=== PATIENT | male | born 1965 | race African-American/Black ===

== ENCOUNTER 2020-01-23 09:53 | Emergency (ER) | payer OTHER, SELFPAY ==
[2020-01-23] VITALS (14 sets, daily range): BP systolic 126–144; BP diastolic 82–93; PULSE 71–93; RESP 10–18; TEMP 36.8; O2SAT 97–100
--- NOTE | ~2020-01-23 | XR_ITS ---
XR lumbar spine 2-3V DATE: 01/23/2020 11:23 INDICATION: Low back pain TECHNIQUE: AP, lateral views COMPARISON: None FINDINGS: Normal alignment of the lumbar spine. No fracture or bone destruction. The lumbar and inclu ded lower thoracic pedicles are intact. No spondylolisthesis. Lumbar and lumbosacral interspaces appe ar preserved. Mild degenerative spurring of the lumbar spine. The sacral iliac joints are normal. IMPRESSION: Mild degenerative spurring Reviewed, dictated and finalized at location A. IMPRESSION: Mild degenerative spurring
--- NOTE | 2020-01-23 11:06 | ED.GENADULT ---
HPI - General Adult General Chief complaint: Unspecified Stated complaint: body aches/chills Time Seen by Provider: 01/23/20 10:22 Source: patient Mode of arrival: ambulatory Limitations: no limitations History of Present Illness HPI narrative: This patient is a 54 year old male who presents with complaint of neck pain and back pain. Patient has history of back in [place] in the past. He states he has had back and neck pain x 3 days when he lays down. He states he is unable to sleep due to his pain, although he has not tried to take any medication for his pain. Patient was seen by his primary care physician yesterday , and he was prescribed antibiotics for a sinus infection. He also states he was given a script to get an xray but he came to ER. He denies arm or leg weakness. He states he has tingling in his feet. Related Data Home Medications Medication Instructions Recorded Confirmed Augmentin 875 mg PO BID 01/23/20 01/23/20 hydrochlorothiazide 12.5 mg PO DAILY 01/23/20 01/23/20 metoprolol succinate 12.5 mg PO DAILY 01/23/20 01/23/20 Allergies Allergy/AdvReac Type Severity Reaction Status Date / Time No Known Allergies Allergy Verified 01/23/20 10:00 Review of Systems Review of Systems: All systems reviewed & are unremarkable except as noted in HPI and below Constitutional: Constitutional: Denies chills, Denies fever(s) and Denies weakness ENT: Reports nasal congestion, Reports sinus pressure and Denies sore throat Gastrointestinal: Gastrointestinal: Denies abdominal pain and Denies nausea Musculoskeletal: Musculoskeletal: Reports back pain Neurologic: Denies dizziness, Denies focal weakness and Denies weakness PMFSH Past Medical History Medical History (Updated 01/23/20 @ 13:13 by Kristi Nunes MD) Hypertension Social History Social History (Updated 01/23/20 @ 11:09 by Kristi Nunes MD) Smoking status: Never smoker Gender identity (if verbalized by the patient): Male Comments denies surgical history Exam Narrative: Exam Narrative: GENERAL: Well-appearing, well-nourished, and in no acute distress. HEAD: Normocephalic, atraumatic EYES: PERRLA and EOMI, conjunctiva clear without discharge EARS: TM's clear bilaterally without erythema or dullness NOSE: Nares clear, no rhinorrhea or epistaxis THROAT:Mucous membranes moist, Oropharynx normal without erythema, exudate, peritonsillar swelling or fluctuance NECK: Supple, without lymphadenopathy or mass RESPIRATORY: No respiratory distress, Airway patent, Respirations non-labored, Clear to auscultation without rales, rhonchi or wheeze HEART: Regular rate and rhythm. No murmur heard. Normal peripheral pulses. ABDOMEN: Soft, nontender, nondistended, normal active bowel sounds. No masses. No rebound or guarding, No organomegaly. EXTREMITIES: No edema, normal strength with full range of motion. SKIN: Warm, dry, normal color without rash NEURO: Alert and oriented x3. CN 2-12 grossly intact. No focal deficits. PSYCH: Normal mood and affect. Course Vital Signs Vital signs: Vital Signs Temperature 98.3 F 01/23/20 09:55 Pulse Rate 92 01/23/20 09:55 Respiratory Rate 18 01/23/20 09:55 Blood Pressure 140/93 H 01/23/20 09:55 Pulse Oximetry 98 01/23/20 09:55 Temperature 98.3 F 01/23/20 09:55 Pulse Rate 79 01/23/20 11:21 Respiratory Rate 15 01/23/20 11:21 Blood Pressure 128/82 01/23/20 11:01 Pulse Oximetry 98 01/23/20 11:02 Medical Decision Making Vital Signs Vital Signs: Vital Signs Temperature 98.3 F 01/23/20 09:55 Pulse Rate 92 01/23/20 09:55 Respiratory Rate 18 01/23/20 09:55 Blood Pressure 140/93 H 01/23/20 09:55 Pulse Oximetry 98 01/23/20 09:55 Temperature 98.3 F 01/23/20 09:55 Pulse Rate 79 01/23/20 11:21 Respiratory Rate 15 01/23/20 11:21 Blood Pressure 128/82 01/23/20 11:01 Pulse Oximetry 98 01/23/20 11:02 Lab Data Result diagrams:
[2020-01-23 11:20] LABS: Basophils Percent Auto 0.3 % (0.2-1.2); Eosinophils Absolute Auto 0.2 K/mm3 (0-0.3); Hematocrit 43.7 % (42.0-52.0); Hemoglobin 15.1 g/dL (14.0-18.0); Immature Granulocyte Absolute 0.02 K/mm3 (0.00-0.031); Immature Granulocyte Percent A 0.2 % (0-0.5); Lymphocytes Percent Auto 22.3 % (18.3-44.2); Mean Corpuscular HGB Conc 34.6 g/dl (32-36); Mean Corpuscular Hemoglobin 30.6 pg (26-34); Mean Corpuscular Volume 88.5 fl (80-100); Mean Platelet Volume 8.9 fl (7.4-10.4); Monocytes Absolute Auto 0.6 K/mm3 (0.1-0.6); Monocytes Percent Auto 7.1 % (2.6-8.5); Neutrophils Absolute Auto 6.1 K/mm3 (1.3-6.7); Neutrophils Percent Auto 68.1 % (45.5-73.1); Platelet Count Result 270 k/mm3 (150-375); Red Blood Count 4.94 M/mm3 (4.6-6.20); Red Cell Distribution Width 12.2 % (11.5-14.5)
[2020-01-23 13:05] LABS: Alanine Aminotransferase 55 U/L (4-50); Albumin Level 4.7 g/dL (3.5-5.1); Alkaline Phosphatase 90 U/L (38-126); Aspartate Amino Transferase 41 U/L (17-59); Bilirubin,Total 0.5 mg/dL (0.2-1.3); Blood Urea Nitrogen 13 mg/dL (9-20); CRP < 0.5 mg/dL (<1.0); Calcium 9.8 mg/dL (8.4-10.2); Carbon Dioxide 29 mmol/L (22-30); Chloride 102 mmol/L (98-107); Estimated CRCL calculation 68 ml/min; Estimated Glomerular Filt Rate > 60; Glucose 92 mg/dL (75-110); Potassium 3.5 mmol/L (3.4-5.0); Sodium 139 mmol/L (137-145)
== END 2020-01-23 13:26 | disposition home or self-care (01) ==
PROVIDERS: Emergency Provider General Practice; PCP Family Medicine
DX: M54.5 Low back pain (principal); I10 Essential (primary) hypertension
CPT/HCPCS: 36415; 72100; 80053; 85025; 86140; 99283

== ENCOUNTER → 2020-05-20 11:39 | Outpatient (CLI) | payer OTHER, SELFPAY ==
--- NOTE | ~2020-05-20 | XR_ITS ---
EXAMINATION: XR cervical spine 4-5V DATE: 05/20/2020 12:03 INDICATION: Neck pain. Arm and leg pain. TECHNIQUE: 4 views of cervical spine were obtained. COMPARISON: None. FINDINGS: There is 3 degrees levocurvature of cervicothoracic spine. Vertebral body heights and inter vertebral disc heights are normal. The facet joints are unremarkable. No central canal stenosis or pr evertebral soft tissue swelling. IMPRESSION: 1. No etiology for the patient's symptoms. Reviewed, dictated and finalized at location A.
--- NOTE | ~2020-05-20 | XR_ITS ---
EXAMINATION: XR soft tissue neck DATE: 05/20/2020 12:03 INDICATION: Sore throat. TECHNIQUE: 2 views of the neck soft tissues were obtained. COMPARISON: None. FINDINGS: The adenoids, palatine tonsils, prevertebral soft tissues, epiglottis, and airway are angela l. IMPRESSION: 1. Normal neck soft tissues. Reviewed, dictated and finalized at location A.
== END ==
PROVIDERS: PCP Emergency Medicine; Visit Provider Emergency Medicine
DX: M54.2 Cervicalgia (principal); R20.2 Paresthesia of skin; J02.9 Acute pharyngitis, unspecified
CPT/HCPCS: 70360; 72050

== ENCOUNTER 2020-08-24 21:03 | Emergency (ER) | payer OTHER, SELFPAY ==
[2020-08-24 21:06] VITALS: BP 148/89; PULSE 84; RESP 20; TEMP 36.4; O2SAT 99
--- NOTE | 2020-08-24 21:21 | ECG_ITS ---
Measurements Intervals [place] Rate: 79 P: 61 [place]: 157 QRS: -12 QRSD: 94 T: 38 QT: 342 QTc: 393 Interpretive Statements SINUS RHYTHM NORMAL ECG Electronically Signed On 08-25-2020 7:46:55 [employer]CIAL [employer]ENT by Jean Paul Cartwright D.O.
[2020-08-24 21:26] VITALS: BP 134/87; PULSE 74
[2020-08-24 21:28] VITALS: BP 133/94; PULSE 76
[2020-08-24 21:30] VITALS: BP 144/87; PULSE 82
[2020-08-24 21:44] LABS: Basophils Percent Auto 0.4 % (0.2-1.2); Eosinophils Absolute Auto 0.3 K/mm3 (0-0.3); Eosinophils Percent Auto 3.4 % (0-4.4); Hematocrit 43.3 % (42.0-52.0); Hemoglobin 14.9 g/dL (14.0-18.0); Immature Granulocyte Absolute 0.02 K/mm3 (0.00-0.031); Immature Granulocyte Percent A 0.3 % (0-0.5); Lymphocytes Absolute Auto 2.88 K/mm3 (0.9-3.2); Lymphocytes Percent Auto 36.3 % (18.3-44.2); Mean Corpuscular HGB Conc 34.4 g/dl (32-36); Mean Corpuscular Hemoglobin 30.8 pg (26-34); Mean Corpuscular Volume 89.5 fl (80-100); Mean Platelet Volume 9.1 fl (7.4-10.4); Monocytes Absolute Auto 0.6 K/mm3 (0.1-0.6); Monocytes Percent Auto 7.4 % (2.6-8.5); Neutrophils Absolute Auto 4.2 K/mm3 (1.3-6.7); Neutrophils Percent Auto 52.2 % (45.5-73.1); Platelet Count Result 283 k/mm3 (150-375); Red Blood Count 4.84 M/mm3 (4.6-6.20); Red Cell Distribution Width 12.1 % (11.5-14.5); White Blood Count 7.9 K/mm3 (4.5-10.0)
[2020-08-24] MEDS: SODIUM CHLORIDE 0.9% IV 1,000 ML 999 ML IV CONT (21:51)
--- NOTE | 2020-08-24 21:52 | ED.GENADULT ---
HPI - General Adult General Chief complaint: Dizziness Stated complaint: dizziness, SOB Time Seen by Provider: 08/24/20 21:38 History of Present Illness HPI narrative: Patient is a 55-year-old gentleman who presents the emergency department with chief complaint of near syncope. Patient reports he was at work at [email or web address] working on the [place] [employer] says he was nearby the boilers and started feeling lightheaded felt as though he was going to pass out and also felt a little short of breath at that time. Patient states that the symptoms have subsequently resolved states that he started to feel better at this time. Patient does report that for some time he has had some generalized muscle aches reports that he has prior history of hypertension and takes medications for blood pressure. The patient denies chest pain denies fever denies chills denies cough. Related Data Home Medications Medication Instructions Recorded Confirmed Augmentin 875 mg PO BID 01/23/20 01/23/20 hydrochlorothiazide 12.5 mg PO DAILY 01/23/20 01/23/20 metoprolol succinate 12.5 mg PO DAILY 01/23/20 01/23/20 Allergies Allergy/AdvReac Type Severity Reaction Status Date / Time No Known Allergies Allergy Verified 08/24/20 21:08 Review of Systems Review of Systems: Narrative: A 10 system review of systems was completed on the patient and is negative except for what is stated in the HPI. Nursing and ancillary documentation was reviewed. [facility] Past Medical History Medical History Hypertension Social History Social History Smoking status: Never smoker Gender identity (if verbalized by the patient): Male Sexual Orientation (if Verbalized by the Patient): Straight or Heterosexual Exam Narrative: Exam Narrative: GENERAL: Well-appearing, well-nourished, and in no acute distress. HEAD: Normocephalic, atraumatic. EYES: PERRLA and EOMI. ENT: Nares clear, no rhinorrhea or epistaxis. Mucous membranes moist. NECK: Supple. CHEST: Clear to auscultation. No respiratory distress. HEART: Regular rate and rhythm. No murmur heard. Normal peripheral pulses. ABDOMEN: Soft, nontender, nondistended, normal active bowel sounds. EXTREMITIES: Normal range of motion. No edema. SKIN: Warm, dry, no rash. NEURO: No focal deficits. Alert and oriented x3. PSYCH: Normal mood and affect. Course Vital Signs Vital signs: Vital Signs Temperature 36.4 C 08/24/20 21:06 Pulse Rate 84 08/24/20 21:06 Respiratory Rate 20 08/24/20 21:06 Blood Pressure 148/89 H 08/24/20 21:06 Pulse Oximetry 99 08/24/20 21:06 Temperature 36.4 C 08/24/20 21:06 Pulse Rate 82 08/24/20 21:30 Respiratory Rate 20 08/24/20 21:06 Blood Pressure 144/87 H 08/24/20 21:30 Pulse Oximetry 99 08/24/20 21:06 Medical Decision Making Vital Signs Vital Signs: Vital Signs Temperature 36.4 C 08/24/20 21:06 Pulse Rate 84 08/24/20 21:06 Respiratory Rate 20 08/24/20 21:06 Blood Pressure 148/89 H 08/24/20 21:06 Pulse Oximetry 99 08/24/20 21:06 Temperature 36.4 C 08/24/20 21:06 Pulse Rate 82 08/24/20 21:30 Respiratory Rate 20 08/24/20 21:06 Blood Pressure 144/87 H 08/24/20 21:30 Pulse Oximetry 99 08/24/20 21:06 Lab Data Result diagrams: 08/24/20 21:36 08/24/20 21:36 Labs: Lab Results 08/24/20 08/24/20 08/24/20 Range/Units 21:36 21:36 21:36 WBC 7.9 (4.5-10.0) K/mm3 RBC 4.84 (4.6-6.20) M/mm3 Hgb 14.9 (14.0-18.0) g/dL Hct 43.3 (42.0-52.0) % MCV 89.5 (80-100) fl MCH 30.8 (26-34) pg MCHC 34.4 (32-36) g/dl RDW 12.1 (11.5-14.5) % Plt Count 283 (150-375) k/mm3 MPV 9.1 (7.4-10.4) fl Immature Gran % (Auto) 0.3 (0-0.5) % Neut % (Auto) 52.2 (45.5-73.1) % Lymph % (Auto) 36.3 (18.3-44.2) % [place] % (Auto) 7.4 (2.6-8.5
[2020-08-24 21:57] LABS: Anion Gap 9 mmol/L (8-16); Blood Urea Nitrogen 18 mg/dL (9-20); Calcium 9.4 mg/dL (8.4-10.2); Carbon Dioxide 29 mmol/L (22-30); Chloride 99 mmol/L (98-107); Estimated CRCL calculation 55 ml/min; Estimated Glomerular Filt Rate > 60; Glucose 92 mg/dL (75-110); Potassium 3.6 mmol/L (3.4-5.0); Sodium 137 mmol/L (137-145)
[2020-08-24 22:08] LABS: Troponin I < 0.012 ng/mL (0.000-0.034)
[2020-08-24 22:25] LABS: Creatine Kinase 355 U/L (55-170)
[2020-08-24 22:44] LABS: Add Urine Microscopic? NO; Appearance Urine Clear (Clear); Bilirubin Urine Negative (Negative); Blood Urine Negative (Negative); Color Urine Colorless (Yellow); Glucose Urine UA Negative (Negative); Ketones Urine Negative (Negative); Leukocyte Esterase Ur Negative LEU/UL (Negative); Nitrate Urine Negative (Negative); Protein Urine Negative (Negative); Urobilinogen Urine Negative mg/dL (<2.0)
[2020-08-24 23:07] VITALS: BP 134/80; PULSE 75; RESP 18; O2SAT 100
[2020-08-25 00:16] VITALS: BP 132/69; PULSE 74; RESP 20; O2SAT 97
== END 2020-08-25 00:17 | disposition home or self-care (01) ==
PROVIDERS: Emergency Provider Emergency Medicine; PCP Emergency Medicine
DX: R55 Syncope and collapse (principal); I10 Essential (primary) hypertension
CPT/HCPCS: 36415; 80048; 81003; 82550; 84484; 85025; 93005; 96360; 99284; J7030

== ENCOUNTER 2021-08-24 03:22 | Emergency (ER) | payer OTHER, SELFPAY ==
[2021-08-24 03:25] VITALS: BP 144/87; PULSE 80; RESP 20; TEMP 36.8; O2SAT 100
[2021-08-24 05:24] VITALS: BP 159/99; PULSE 68; RESP 19; O2SAT 98
--- NOTE | 2021-08-24 06:02 | ECG_ITS ---
Measurements Intervals [place] Rate: 65 P: 56 [place]: 155 QRS: -12 QRSD: 83 T: 46 QT: 371 QTc: 386 Interpretive Statements SINUS RHYTHM NORMAL ECG Electronically Signed On 08-24-2021 6:11:46 [employer] by Jean Paul Cartwright D.O.
[2021-08-24 06:20] LABS: Basophils Percent Auto 0.2 % (0.2-1.2); Eosinophils Absolute Auto 0.1 K/mm3 (0-0.3); Eosinophils Percent Auto 0.6 % (0-4.4); Hemoglobin 15.3 g/dL (14.0-18.0); Immature Granulocyte Absolute 0.04 K/mm3 (0.00-0.031); Immature Granulocyte Percent A 0.3 % (0-0.5); Lymphocytes Absolute Auto 2.36 K/mm3 (0.9-3.2); Mean Corpuscular Hemoglobin 30.8 pg (26-34); Mean Corpuscular Volume 90.5 fl (80-100); Mean Platelet Volume 8.7 fl (7.4-10.4); Monocytes Absolute Auto 0.8 K/mm3 (0.1-0.6); Monocytes Percent Auto 6.6 % (2.6-8.5); Neutrophils Absolute Auto 9.1 K/mm3 (1.3-6.7); Neutrophils Percent Auto 73.3 % (45.5-73.1); Platelet Count Result 297 k/mm3 (150-375); Red Blood Count 4.97 M/mm3 (4.6-6.20); Red Cell Distribution Width 12.3 % (11.5-14.5); White Blood Count 12.4 K/mm3 (4.5-10.0)
[2021-08-24 06:32] LABS: Alanine Aminotransferase 23 U/L (4-50); Albumin Level 4.4 g/dL (3.5-5.1); Alkaline Phosphatase 81 U/L (38-126); Anion Gap 8 mmol/L (8-16); Aspartate Amino Transferase 23 U/L (17-59); Bilirubin,Total 0.6 mg/dL (0.2-1.3); Blood Urea Nitrogen 26 mg/dL (9-20); Calcium 9.4 mg/dL (8.4-10.2); Carbon Dioxide 27 mmol/L (22-30); Chloride 100 mmol/L (98-107); Estimated CRCL calculation 58 ml/min; Estimated Glomerular Filt Rate > 60; Glucose 101 mg/dL (65-110); Potassium 3.8 mmol/L (3.4-5.0); Sodium 135 mmol/L (137-145)
--- NOTE | 2021-08-24 06:33 | ED.EXTPRO ---
HPI - Extremity Problem General Chief complaint: Extremity Problem,Nontraumatic Stated complaint: bilateral leg cramping Time Seen by Provider: 08/24/21 06:17 Source: patient Mode of arrival: ambulatory Limitations: no limitations History of Present Illness HPI Narrative: Patient is a 56-year-old male complaining of bilateral lower extremity cramping accompanied by waking up in sweat for the past 3 days. Patient currently denies any cramping of his lower extremities. Patient denies any lower extremity pain. Patient denies any chest pain, shortness of breath, abdominal pain, nausea, vomiting, fever or chills. Related Data Home Medications Medication Instructions Recorded Confirmed Augmentin 875 mg PO BID 01/23/20 01/23/20 hydrochlorothiazide 12.5 mg PO DAILY 01/23/20 01/23/20 metoprolol succinate 12.5 mg PO DAILY 01/23/20 01/23/20 Allergies Allergy/AdvReac Type Severity Reaction Status Date / Time No Known Allergies Allergy Verified 08/24/21 05:26 Review of Systems Review of Systems: All systems reviewed & are unremarkable except as noted in HPI and below Constitutional: Constitutional: Denies body ache(s), Denies chills, Denies excessive sweating, Denies fatigue, Denies fever(s), Denies headache(s), Denies lethargy, Denies malaise, Denies weakness and Denies weight loss Eyes: Eyes: Denies blurry vision, Denies change in vision and Denies loss of vision ENT: Denies dizziness, Denies ear discharge, Denies headache(s), Denies lip swelling, Denies epistaxis, Denies nasal congestion, Denies neck pain, Denies throat swelling and Denies tongue swelling Cardiovascular: Cardiovascular: Denies chest pain, Denies chest pain at rest, Denies chest pain with activity, Denies diaphoresis, Denies rapid heart rate, Denies edema, Denies irregular heart rhythm, Denies lightheadedness, Denies palpitations, Denies dyspnea and Denies dyspnea on exertion Respiratory: Respiratory: Denies chest congestion, Denies cough, Denies hemoptysis, Denies dyspnea and Denies dyspnea on exertion Gastrointestinal: Gastrointestinal: Denies abdominal pain, Denies melena, Denies hematochezia, Denies diarrhea, Denies nausea, Denies vomiting and Denies hematemesis Musculoskeletal: Musculoskeletal: Denies abnormal gait, Denies deformity, Denies joint swelling, Denies limited range of motion, Denies neck pain and Denies numbness Neurologic: Denies Abnormal speech present, Denies abnormal gait, Denies confusion, Denies dizziness, Denies headache(s), Denies focal weakness, Denies loss of vision, Denies numbness, Denies Other visual disturbances, Denies Sensory deficit (Neuro) and Denies weakness Psychiatric: Psychiatric: Denies confusion, Denies depression, Denies auditory hallucinations, Denies homicidal ideation and Denies suicidal ideation Endocrine: Endocrine: Denies cold intolerance, Denies excessive sweating, Denies fatigue, Denies heat intolerance and Denies palpitations Hematologic/Lymphatic: Hematologic/Lymphatic: Denies easy bleeding and Denies easy bruising Allergic/Immunologic: Allergic/Immunologic: Denies lip swelling, Denies throat swelling and Denies tongue swelling PMFSH Past Medical History Medical History Hypertension Social History Social History Smoking status: Never smoker Gender identity (if verbalized by the patient): Male Sexual Orientation (if Verbalized by the Patient): Straight or Heterosexual Exam Const: General: cooperative, healthy appearing, comfortable, no acute distress, well developed, alert and awake; No confusion Orientation/consciousness: oriented to person, oriented to place, oriented to time, patient oriented x3 and No confusion Limitations: no limitations HENMT: Head: normal to inspection, normocephalic and atraumatic Ears: hearing grossly normal bilaterally, TM normal on the right and TM normal on the
[2021-08-24 06:37] VITALS: BP 148/95; PULSE 68; RESP 15; O2SAT 99
[2021-08-24 06:42] LABS: Troponin I < 0.012 ng/mL (0.000-0.034)
[2021-08-24 07:25] VITALS: BP 137/81; PULSE 69; RESP 18; O2SAT 100
== END 2021-08-24 07:26 | disposition home or self-care (01) ==
PROVIDERS: Emergency Provider Emergency Medicine; PCP Emergency Medicine
DX: R25.2 Cramp and spasm (principal); I10 Essential (primary) hypertension
CPT/HCPCS: 36415; 80053; 84484; 85025; 93005; 99283

== ENCOUNTER 2021-10-01 09:58 | Emergency (ER) | payer OTHER, SELFPAY ==
[2021-10-01 10:16] VITALS: BP 137/76; PULSE 87; RESP 14; TEMP 37.1; O2SAT 100
[2021-10-01 12:24] LABS: Add Urine Microscopic? NO; Appearance Urine Clear (Clear); Bilirubin Urine Negative (Negative); Blood Urine Negative (Negative); Color Urine Colorless (Yellow); Glucose Urine UA Negative (Negative); Ketones Urine Negative (Negative); Leukocyte Esterase Ur Negative LEU/UL (Negative); Nitrate Urine Negative (Negative); Protein Urine Negative (Negative); Urobilinogen Urine Negative mg/dL (<2.0)
[2021-10-01 12:31] LABS: Specific Grav Ur 1.003 (1.001-1.035)
--- NOTE | 2021-10-01 13:13 | ED.GENADULT ---
HPI - General Adult General Chief complaint: Extremity Problem,Nontraumatic Stated complaint: tingling in groin/legs Time Seen by Provider: 10/01/21 11:16 History of Present Illness HPI narrative: Patient is a 56-year-old male who presents ER with complaint of tingling around his urethra when he urinates as well as some sore throat. Reports the tingling is only when he urinates, he has no urethral discharge, he is not concerned about STI as he is not had sex in the last 10 years. He has no fevers or chills or sweats. No lower abdominal pain. He has no numbness or tingling of his testicles/penis/anus/perineum. No difficulty with defecation. Reports chronic back pain with a pinched nerve many years ago that has not currently being aggravated. Reports a sore throat came on today and prompted his visit. The tingling of the penis had been ongoing for 2 months. Sore throat is not related to sinus congestion, no productive cough. He has been seen by ENT in the past with nonspecific pharyngitis that may be related to reflux. Related Data Home Medications Medication Instructions Recorded Confirmed Augmentin 875 mg PO BID 01/23/20 01/23/20 hydrochlorothiazide 12.5 mg PO DAILY 01/23/20 01/23/20 metoprolol succinate 12.5 mg PO DAILY 01/23/20 01/23/20 Allergies Allergy/AdvReac Type Severity Reaction Status Date / Time No Known Allergies Allergy Verified 08/24/21 05:26 Review of Systems Constitutional: Constitutional: Denies chills, Denies fever(s) and Denies weakness ENT: Denies nasal congestion and Reports sore throat Respiratory: Respiratory: Denies cough, Denies dyspnea and Denies wheezing Gastrointestinal: Gastrointestinal: Denies abdominal pain, Denies constipation, Denies diarrhea and Denies nausea Genitourinary: Genitourinary: Denies hematuria, Denies oliguria, Reports dysuria, Denies penile discharge, Denies testicular pain, Denies urinary frequency and Denies urinary incontinence Musculoskeletal: Musculoskeletal: Denies back pain and Denies muscle cramps Neurologic: Denies headache(s), Denies focal weakness and Denies numbness [facility] Past Medical History Medical History (Updated 10/01/21 @ 14:01 by Saravanan Pitts MD) Hypertension Surgical History Surgical History (Updated 10/01/21 @ 14:01 by Saravanan Pitts MD) No pertinent past surgical history Social History Social History Smoking status: Never smoker Gender identity (if verbalized by the patient): Male Sexual Orientation (if Verbalized by the Patient): Straight or Heterosexual Exam Narrative: GENERAL: Well-appearing, well-nourished, and in no acute distress. HEAD: Normocephalic, atraumatic. ENT: Mucous membranes moist. Normal-appearing posterior oropharynx without tonsillar hypertrophy or uvular shift. NECK: Supple. CHEST: Clear to auscultation. No respiratory distress. HEART: Regular rate and rhythm. Normal peripheral pulses. ABDOMEN: Soft, nontender, nondistended. : Normal-appearing external genitalia. Sharp and soft touch intact throughout the groin/testicle/penis. No urethral discharge. No tenderness to the testicle/epididymis. Back: No midline tenderness of thoracic or lumbar spine. No reproducible paraspinal muscular tenderness. EXTREMITIES: Normal range of motion. No edema. SKIN: Warm, dry, no rash. NEURO: Alert and oriented x3. Ambulates with steady gait. Sensation intact in groin. Course Course Emergency Course: Unremarkable evaluation. Recommend follow-up with PCP. Vital Signs Vital signs: Vital Signs Temperature 98.8 F 10/01/21 10:16 Pulse Rate 87 10/01/21 10:16 Respiratory Rate 14 10/01/21 10:16 Blood Pressure 137/76 10/01/21 10:16 Pulse Oximetry 100 10/01/21 10:16 Temperature 98.8 F 10/01/21 10:16 Pulse Rate 87 10/01/21 10:16 Respiratory Rate 14 10/01/21 10:16 Blood Pressure 137/76 10/01/21 10:16 Pulse Oximetry 100
[2021-10-01 13:56] VITALS: BP 126/74; PULSE 86; RESP 18; O2SAT 100
== END 2021-10-01 13:59 | disposition home or self-care (01) ==
PROVIDERS: Emergency Provider Emergency Medicine; PCP Emergency Medicine
DX: J02.9 Acute pharyngitis, unspecified (principal); R30.0 Dysuria; I10 Essential (primary) hypertension
CPT/HCPCS: 81003; 87081; 87880; 99283

== ENCOUNTER → 2021-10-15 15:41 | Outpatient (CLI) | payer OTHER, SELFPAY ==
--- NOTE | ~2021-10-15 | XR_ITS ---
XR hip BI wo pelvis DATE: 10/15/2021 16:39 INDICATION: Bilateral groin pain TECHNIQUE: AP, lateral and crosstable lateral views of each hip COMPARISON: October 15, 2021 sacrum and coccyx FINDINGS: Mild bilateral hip osteoarthritis. No fracture, dislocation, avascular necrosis or bone reno truction of either hip is detected. The pubic symphysis and sacroiliac joints are intact. IMPRESSION: Mild bilateral hip osteoarthritis Reviewed, dictated and finalized at location A. [employer]
--- NOTE | ~2021-10-15 | XR_ITS ---
XR sacrum coccyx min 2V DATE: 10/15/2021 16:39 INDICATION: Bilateral groin pain TECHNIQUE: AP, angled AP and lateral views COMPARISON: None FINDINGS: The included L4-5 and L5-S1 interspaces are well preserved. No fracture or bone destruction of the sacrum or coccyx. The sacroiliac joints are intact, without er osion, ankylosis, fracture, dislocation or significant degenerative change. IMPRESSION: Negative Reviewed, dictated and finalized at location A. [employer] IMPRESSION: Negative
== END ==
PROVIDERS: PCP Emergency Medicine; Visit Provider Emergency Medicine
DX: M53.3 Sacrococcygeal disorders, not elsewhere classified (principal); M16.0 Bilateral primary osteoarthritis of hip
CPT/HCPCS: 72220; 73521

== ENCOUNTER 2022-03-26 11:46 | Emergency (ER) | payer BC, SELFPAY ==
--- NOTE | ~2022-03-26 | CT_ITS ---
EXAMINATION: CT cervical spine wo con DATE: 03/26/2022 14:20 INDICATION: Neck pain TECHNIQUE: Computed tomography (CT) of the cervical spine was performed without intravenous contrast. The dose-length product was 378 mGy-cm. Automated exposure control and iterative reconstruction tech nique were employed. COMPARISON: None FINDINGS: Vertebral body and disc heights are preserved. There is straightening of cervical lordosis, likely due to muscle spasm or patient positioning. Odontoid process within normal limits. No evidenc e for perched facet. Craniovertebral junction within normal limits. No significant paraspinal soft ti ssue abnormality. Lung apices are normal. There is mild uncinate degenerative change of the lower cer vical spine. IMPRESSION: 1. No acute abnormality of the cervical spine. Reviewed, dictated and finalized at location A.
--- NOTE | ~2022-03-26 | CT_ITS ---
EXAMINATION: CT BRAIN W/O DATE: 03/26/2022 14:20 INDICATION: Headache TECHNIQUE: Computed tomography (CT) of the head was performed without intravenous contrast. The dose- length product was 605.33 mGy-cm. Automated exposure control and iterative reconstruction technique w ere employed. COMPARISON: No prior studies for comparison. FINDINGS: Normal brain parenchymal volume for age. Normal landin-white differentiation. No acute intrac ranial hemorrhage, infarction, mass or mass effect. No ventriculomegaly or midline shift. Midline sagittal images demonstrate a normal corpus callosum, c raniovertebral junction and sella turcica. Basilar cisterns are patent. Paranasal sinuses and mastoids are pneumatized. No depressed skull fractures. IMPRESSION: 1. No acute intracranial abnormality. Reviewed, dictated and finalized at location A.
[2022-03-26 11:50] VITALS: BP 151/93; PULSE 77; RESP 15; TEMP 37; O2SAT 100
--- NOTE | 2022-03-26 13:42 | ED.NECK ---
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 Lately been having intermittent headache also some stiffness of the jaw muscle which is not available at this time. He reported that the headache and the stiffness of the jaw muscles is intermittent 2. Patient denies any fever, chills, nausea, vomiting, difficulty swallowing or breathing, recent trauma. Patient was seen by his family physician who advised him to take Tylenol as needed. Patient supposed to go to work today at 4 PM and would like to have a day off. Patient denies any tingling, numbness or weakness of the upper or lower extremities. Related Data Home Medications Medication Instructions Recorded Confirmed Augmentin 875 mg PO BID 01/23/20 01/23/20 hydrochlorothiazide 12.5 mg PO DAILY 01/23/20 01/23/20 metoprolol succinate 12.5 mg PO DAILY 01/23/20 01/23/20 Allergies Allergy/AdvReac Type Severity Reaction Status Date / Time No Known Allergies Allergy Verified 03/26/22 11:54 Review of Systems Review of Systems: All systems reviewed & are unremarkable except as noted in HPI and below PMFSH Past Medical History Medical History Hypertension Surgical History Surgical History No pertinent past surgical history Social History Social History Smoking status: Never smoker Gender identity (if verbalized by the patient): Male Sexual Orientation (if Verbalized by the Patient): Straight or Heterosexual Exam Narrative: General appearance: Well-developed, well-nourished Skin: Normal color Head: Normocephalic, nontraumatic Eyes: Clear conjunctiva ENT: Oropharynx normal, ears normal, nose normal Neck: Supple, no tenderness, muscle spasm. Chest and respiratory: Airway patent, no respiratory distress, no accessory muscle use Heart: Regular rate/rhythm Abdomen: Soft, nontender, no organomegaly, quiet bowel sounds Vascular: Normal peripheral pulses, normal capillary refill. Musculoskeletal: Normal range of motion, nontender back Neurologic: Alert and oriented ?3, CUFF TURNER is normal as tested, no gross motor deficit Course Course Emergency Course: Musculoskeletal strain, sprain is my concern. 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 Vital Signs Vital signs: Vital Signs Temperature 37.0 C 03/26/22 11:50 Pulse Rate 77 03/26/22 11:50 Respiratory Rate 15 03/26/22 11:50 Blood Pressure 151/93 H 03/26/22 11:50 Pulse Oximetry 100 03/26/22 11:50 Oxygen Delivery Room Air 03/26/22 11:50 Temperature 37.0 C 03/26/22 11:50 Pulse Rate 77 03/26/22 11:50 Respiratory Rate 15 03/26/22 11:50 Blood Pressure 151/93 H 03/26/22 11:50 Pulse Oximetry 100 03/26/22 11:50 Oxygen Delivery Room Air 03/26/22 11:50 MDM - Neck Pain/Injury Lab Data Result diagrams: 03/26/22 13:54 03/26/22 13:54 Labs: Lab Results 03/26/22 03/26/22 Range/Units 13:54 13:54 WBC 10.4 H (4.5-10.0) K/mm3 RBC 5.38 (4.6-6.20) M/mm3 Hgb 16.0 (14.0-18.0) g/dL Hct 48.0 (42.0-52.0) % MCV 89.2 (80-100) fl MCH 29.7
[2022-03-26] MEDS: IBUPROFEN 600 MG TABLET PO (13:44)
[2022-03-26] MEDS: CYCLOBENZAPRINE HCL 10 MG TABLET PO (13:45)
[2022-03-26] MEDS: HYDROcodone/acetaminophen (*CRX) 5-325 MG TABLET 1 TAB PO (13:45)
[2022-03-26 13:59] LABS: Basophils Percent Auto 0.3 % (0.2-1.2); Eosinophils Absolute Auto 0.1 K/mm3 (0-0.3); Eosinophils Percent Auto 0.6 % (0-4.4); Immature Granulocyte Absolute 0.04 K/mm3 (0.00-0.031); Immature Granulocyte Percent A 0.4 % (0-0.5); Lymphocytes Absolute Auto 1.64 K/mm3 (0.9-3.2); Lymphocytes Percent Auto 15.7 % (18.3-44.2); Mean Corpuscular HGB Conc 33.3 g/dl (32-36); Mean Corpuscular Hemoglobin 29.7 pg (26-34); Mean Corpuscular Volume 89.2 fl (80-100); Mean Platelet Volume 8.6 fl (7.4-10.4); Monocytes Absolute Auto 0.5 K/mm3 (0.1-0.6); Monocytes Percent Auto 5.2 % (2.6-8.5); Neutrophils Absolute Auto 8.1 K/mm3 (1.3-6.7); Neutrophils Percent Auto 77.8 % (45.5-73.1); Platelet Count Result 279 k/mm3 (150-375); Red Blood Count 5.38 M/mm3 (4.6-6.20); Red Cell Distribution Width 12.7 % (11.5-14.5); White Blood Count 10.4 K/mm3 (4.5-10.0)
[2022-03-26 14:09] LABS: Alanine Aminotransferase 35 U/L (6-50); Alkaline Phosphatase 82 U/L (38-126); Anion Gap 8 mmol/L (8-16); Aspartate Amino Transferase 24 U/L (17-59); Bilirubin,Total 0.6 mg/dL (0.2-1.3); Blood Urea Nitrogen 17 mg/dL (9-20); Calcium 9.9 mg/dL (8.4-10.2); Carbon Dioxide 30 mmol/L (22-30); Chloride 100 mmol/L (98-107); Estimated CRCL calculation 65 ml/min; Estimated Glomerular Filt Rate > 60; Glucose 103 mg/dL (65-110); Potassium 3.8 mmol/L (3.4-5.0); Sodium 138 mmol/L (137-145)
--- NOTE | 2022-03-26 14:11 | PC.NURSE ---
to ct scan
[2022-03-26 15:25] VITALS: BP 141/85; PULSE 62; RESP 16; O2SAT 100
== END 2022-03-26 15:26 | disposition home or self-care (01) ==
PROVIDERS: Emergency Provider Emergency Medicine; PCP Emergency Medicine
DX: M54.2 Cervicalgia (principal); I10 Essential (primary) hypertension
CPT/HCPCS: 36415; 70450; 72125; 80053; 85025; 99284; A9270

== ENCOUNTER 2022-06-30 03:55 | Emergency (ER) | payer BC, SELFPAY ==
--- NOTE | ~2022-06-30 | XR_ITS ---
EXAMINATION: XR shoulder LT min 2V DATE: 06/30/2022 06:11 INDICATION: Left shoulder pain TECHNIQUE: AP internally and externally rotated, AP oblique externally rotated and transscapular Y vi ews of the left shoulder were obtained. COMPARISON: None FINDINGS: Normal alignment. No fracture. Glenohumeral joint is normal. Mild acromioclavicular osteoarthritis. Soft tissues are unremarkable. Visualized portion of the right lung are clear. IMPRESSION: Mild left acromioclavicular osteoarthritis. Reviewed, dictated and finalized at location A.
[2022-06-30 04:02] VITALS: BP 149/111; PULSE 82; RESP 16; TEMP 36.5; O2SAT 100
--- NOTE | 2022-06-30 05:33 | ECG_ITS ---
Measurements Intervals [place] Rate: 62 P: 13 [place]: 150 QRS: -13 QRSD: 96 T: 43 QT: 369 QTc: 377 Interpretive Statements SINUS RHYTHM NONSPECIFIC T-WAVE ABNORMALITY COMPARED TO ECG 08/24/2021 06:09:24 NO SIGNIFICANT CHANGES Electronically Signed On 06-30-2022 14:26:28 CDT by Hussein Sena M.D.
--- NOTE | 2022-06-30 06:07 | ED.GENADULT ---
HPI - General Adult General Chief complaint: Unspecified Stated complaint: multiple complaints Time Seen by Provider: 06/30/22 05:32 History of Present Illness HPI narrative: Patient is a 56-year-old gentleman who presents the emergency department with chief complaint of left shoulder pain. The patient states that for over a year he has been having pain in his left shoulder and into his neck patient also states that for that same amount of time he has been having some issues with balance the patient states that he talked to his primary doctor about it who told him that he probably she does go to the emergency department sometime to be evaluated the patient states that today he is not up clots but that he has pain in the shoulder area and into his neck. Patient states that there is been no trauma denies paresthesias or weakness in his arms or legs. Related Data Home Medications Medication Instructions Recorded Confirmed Augmentin 875 mg PO BID 01/23/20 01/23/20 hydrochlorothiazide 12.5 mg PO DAILY 01/23/20 01/23/20 metoprolol succinate 12.5 mg PO DAILY 01/23/20 01/23/20 Allergies Allergy/AdvReac Type Severity Reaction Status Date / Time No Known Allergies Allergy Verified 06/30/22 04:02 Review of Systems Review of Systems: A 10 system review of systems was completed on the patient and is negative except for what is stated in the HPI. Nursing and ancillary documentation was reviewed. [facility] Past Medical History Medical History Hypertension Surgical History Surgical History No pertinent past surgical history Social History Social History Smoking status: Never smoker Gender identity (if verbalized by the patient): Male Sexual Orientation (if Verbalized by the Patient): Straight or Heterosexual Exam Narrative: GENERAL: Well-appearing, well-nourished, and in no acute distress. HEAD: Normocephalic, atraumatic. EYES: PERRLA and EOMI. ENT: Nares clear, no rhinorrhea or epistaxis. Mucous membranes moist. NECK: Supple. There is tenderness to palpation of the paraspinous muscles of the neck and into the upper portion of the shoulder. There is no bony step-offs noted there is no erythema there is no fluctuance present. CHEST: Clear to auscultation. No respiratory distress. HEART: Regular rate and rhythm. No murmur heard. Normal peripheral pulses. ABDOMEN: Soft, nontender, nondistended, normal active bowel sounds. EXTREMITIES: Normal range of motion. No edema. SKIN: Warm, dry, no rash. NEURO: No focal deficits. Alert and oriented x3. PSYCH: Normal mood and affect. Course Course Emergency Course: The patient has had a CT head and CT C-spine that were performed in March of this year. This showed no evidence of acute abnormality. The symptoms are not new since the last CT scan. The patient should follow-up with his primary care provider for the sensation of being unsteady as this is a chronic condition at this point. Vital Signs Vital signs: Vital Signs Temperature 36.5 C 06/30/22 04:02 Pulse Rate 82 06/30/22 04:02 Respiratory Rate 16 06/30/22 04:02 Blood Pressure 149/111 H 06/30/22 04:02 Pulse Oximetry 100 06/30/22 04:02 Oxygen Delivery Room Air 06/30/22 04:02 Temperature 36.5 C 06/30/22 04:02 Pulse Rate 82 06/30/22 04:02 Respiratory Rate 16 06/30/22 04:02 Blood Pressure 149/111 H 06/30/22 04:02 Pulse Oximetry 100 06/30/22 04:02 Oxygen Delivery Room Air 06/30/22 04:02 Medical Decision Making Vital Signs Vital Signs: Vital Signs Temperature 36.5 C 06/30/22 04:02 Pulse Rate 82 06/30/22 04:02 Respiratory Rate 16 06/30/22 04:02 Blood Pressure 149/111 H 06/30/22 04:02 Pulse Oximetry 100 06/30/22 04:02 Oxygen Delivery Room Air 06/30/22 04:02 Temperat
[2022-06-30] MEDS: ORPHENADRINE CITRATE 100 MG TABLET.ER PO (06:31)
[2022-06-30] MEDS: KETOROLAC 30 MG/ML VIAL (*BKC) IM (06:31)
== END 2022-06-30 06:55 | disposition home or self-care (01) ==
PROVIDERS: Emergency Provider Emergency Medicine; PCP Emergency Medicine
DX: M25.512 Pain in left shoulder (principal); I10 Essential (primary) hypertension
CPT/HCPCS: 73030; 93005; 96372; 99283; A9270; J1885

== ENCOUNTER 2023-11-21 10:07 | Emergency (ER) | payer SELFPAY ==
[2023-11-21 10:30] VITALS: BP 143/86; PULSE 77; RESP 16; TEMP 36.6; O2SAT 100
--- NOTE | 2023-11-21 13:07 | ED.WOUNDLAC ---
HPI - Wound/Laceration General Chief Complaint: Wound/Laceration Stated Complaint: boil left axilla Time Seen by Provider: 11/21/23 13:08 Source: patient Mode of arrival: ambulatory Limitations: no limitations History of Present Illness HPI narrative: Patient is a 50-year-old male who presents the ED with report of an abscess to his left armpit region. Patient reports having an abscess for the last several days, states he began to worsen over the last 2 days. Complains of localized pain. He has tried using warm compresses without improvement. Denies any drainage. Denies fevers. Denies history of similar abscesses. Related Data Home Medications Medication Instructions Recorded Confirmed Augmentin 875 mg PO BID 01/23/20 01/23/20 hydrochlorothiazide 12.5 mg PO DAILY 01/23/20 01/23/20 metoprolol succinate 12.5 mg PO DAILY 01/23/20 01/23/20 Allergies Allergy/AdvReac Type Severity Reaction Status Date / Time No Known Allergies Allergy Verified 11/21/23 10:08 Review of Systems Review of Systems: CONSTITUTIONAL: Denies fever, chills, or sweats. SKIN: See HPI All systems reviewed & are unremarkable except as noted in HPI and below PMFSH Past Medical History Medical History Hypertension Surgical History Surgical History No pertinent past surgical history Social History Social History Smoking status: Never smoker Gender identity (if verbalized by the patient): Male Sexual Orientation (if Verbalized by the Patient): Straight or Heterosexual Exam Narrative: GENERAL: Well appearing, well-nourished, non-toxic, in no acute distress. HEAD: Normocephalic, atraumatic. RESPIRATORY: Airway patent, respirations nonlabored. CARDIOVASCULAR: Regular rate and rhythm without murmurs, rubs, or gallops. MUSCULOSKELETAL: Moves all extremities. No gross deformities. 3 x 3 cm area of induration to left axillary region with central fluctuance and developing pustular lesion. No active drainage. Focal tenderness to palpation. No streaking erythema. SKIN: Warm, dry, normal color. NEURO: A&O X3. Speech clear. PSYCHIATRIC: Appropriate mood and affect. Normal interaction. Course Vital Signs Vital signs: Vital Signs Temperature 97.8 F 11/21/23 10:30 Pulse Rate 77 11/21/23 10:30 Respiratory Rate 16 11/21/23 10:30 Blood Pressure 143/86 H 11/21/23 10:30 Pulse Oximetry 100 11/21/23 10:30 Oxygen Delivery Room Air 11/21/23 10:30 Temperature 97.8 F 11/21/23 10:30 Pulse Rate 77 11/21/23 10:30 Respiratory Rate 16 11/21/23 10:30 Blood Pressure 143/86 H 11/21/23 10:30 Pulse Oximetry 100 11/21/23 10:30 Oxygen Delivery Room Air 11/21/23 10:30 Procedures Abscess I/D chest: Date of Incision: 11/21/23 Time of Incision: 15:05 Side (if applicable): left (axillary region) Sedation/analgesia: none Local Anesthetic: lidocaine 1% Amount of anesthesia used (mL): 5 Technique: incised with #11 blade and probed loculations Amount of fluid expressed (mL): 5 Irrigation: Yes Packing used?: plain I&D Results: Pus and Blood Complications: other (none) MDM - Wound/Laceration MDM Narrative Medical decision making narrative: I&D performed. Patient tolerated procedure well. Will be started on antibiotics. Given wound care instructions and reasons to return. Vitals have been stable. Patient has been afebrile. No evidence of systemic infection to suggest need for further labs or imaging at this time. D/C in stable condition. Medical Records Attestation: I reviewed the patient's medical records. Discharge Plan Discharge Clinical Impression: Abscess of left axilla Patient Disposition: Home, Self-Care Condition: Stable Instr
[2023-11-21] MEDS: SULFAMETHOXAZOLE/TRIMETHOPRIM 800/160 MG DS TABLET 1 TAB PO (13:19)
[2023-11-21] MEDS: ACETAMINOPHEN 500 MG TABLET 1000 MG PO (13:19)
== END 2023-11-21 15:31 | disposition home or self-care (01) ==
PROVIDERS: Emergency Provider Physician Assistant; PCP Emergency Medicine
DX: L02.412 Cutaneous abscess of left axilla (principal); I10 Essential (primary) hypertension
CPT/HCPCS: 10061; 87070; 87077; 87186; 87205; 99283; A9270

== ENCOUNTER 2024-11-04 12:38 | Emergency (ER) | payer OTHER, SELFPAY ==
[2024-11-04 12:50] VITALS: BP 221/101; PULSE 111; RESP 18; TEMP 36.4; O2SAT 99
[2024-11-04 14:43] VITALS: BP 215/113; PULSE 93; RESP 14; TEMP 36.8; O2SAT 100
--- NOTE | 2024-11-04 15:36 | ED.GENADULT ---
HPI - General Adult General Chief complaint: Unspecified <Monica WeemsPark Dolores, HEEL [employer]DER [employer]ACHINE - Last Filed: 11/04/24 16:34> Stated complaint: high BP <Monica WeemsPark Haskins HEEL BU[employer]DER [employer]ACHINE - Last Filed: 11/04/24 16:34> Time Seen by Provider: 11/04/24 15:30 <Monica Alena Haskins HEEL [employer]ACHINE - Last Filed: 11/04/24 16:34> Focused HPI: Patient is a 59-year-old male who presents to the ER with complaints of congestion, cough, shortness of breath, wheezing, sinus pain and cold like symptoms. He reports the symptoms have been going on for approximately 8 months. Patient also endorses right ankle pain without injury. He denies any recent fevers, bilateral lower extremity edema, back pain, or chest pain. Patient endorses a history of high blood pressure and smoking cigarettes. He reports he used to be on blood pressure medication but he took himself off approximately 1 year ago. GENERAL: Well-appearing, well-nourished, and in no acute distress. HEAD: Normocephalic, atraumatic. CHEST: Clear to auscultation. ?No respiratory distress. HEART: Regular rate and rhythm.?No lower extremity edema. NEURO: ?Alert and oriented x3. Patient screened in triage and initial orders placed.? ?Additional care and disposition to be based upon?diagnostic testing and treatment. <Monica WeemsPark Haskins [employer]EL BU[employer]DER [employer]ACHINE - Last Filed: 11/04/24 16:34> History of Present Illness HPI narrative: 89-year-old male with a reported history of hypertension and fibromyalgia presents to the emergency department for URI symptoms for the past 8 months and right ankle pain that started Monday. Patient states for the past 8 months he had had sinus congestion and sinus pressure with postnasal drip producing cough periodically states the cough has been mildly productive. Patient states he is concerned he has a sinus infection. He states Monday he began developing pain in the right lateral aspect of his ankle which is why he came to the ER today. He denies injury or trauma. States he was at work and began feeling a dull ache that is worse with ambulation. He denies fever, chest pain or shortness of breath, lower extremity edema, pain to the remainder of his leg, history of VTE, hemoptysis, recent surgeries or hospitalizations. Notably patient was found be hypertensive at 220/100 upon arrival to the ED. He does note history of hypertension but states he ran out of his medications several months ago and stopped taking them. He has not followed up with his PCP, Dr. Rivera. Patient presents with his empty pill bottles that were last filled February of 2024 which consists of amlodipine 10 mg q.d. and hydrochlorothiazide 12.5 mg q.d.. Per triage note patient admitted to smoking cigarettes, however he denies history of smoking cigarettes to me, formal diagnosis of asthma or COPD. <Ina Gutierrez PA-C - Last Filed: 11/04/24 17:25> Related Data Home medications: Home Medications ?Medication ?Instructions ?Recorded ?Confirmed ?Last Taken ?Type Augmentin 875 mg PO BID 01/23/20 01/23/20 01/23/20 History hydrochlorothiazide 12.5 mg PO DAILY 01/23/20 01/23/20 01/23/20 History metoprolol succinate 12.5 mg PO DAILY 01/23/20 01/23/20 01/23/20 History <Monica Haskins APRN - Last Filed: 11/04/24 16:34> Allergies/adverse reactions: Allergies Allergy/AdvReac Type Severity Reaction Status Date / Time No Known Allergies Allergy Verified 11/21/23 10:08 <Monica Haskins APRN - Last Filed: 11/04/24 16:34> Review of Systems Review of Systems: All systems reviewed & are unremarkable except as noted in HPI and below <Ina Gutierrez PA-C - Last Filed: 11/04/24 17:25> [facility] Past Medical History Medical History: Medical History Hypertension <Monica Haskins APRN - Last Filed: 11/04/24 16:34> Surgical History Surgical History: Surgical History No pertinent past surgical history <Monica Haskins APRN - Last Filed: 11/04/24 16:34> Social History Social History: Social History Smoking status: Never smoker Gender identity (if verbalized by the patient): Male Sexual Orientation (if Verbalized by the Patient): Straight or Heterosexual <Monica Haskins APRN - Last Filed: 11/04/24 16:34> Exam Narrative: GENERAL: Well-appearing, well-nourished, and in no acute distress. HEAD: Normocephalic, atraumatic. EYES: PERRLA and EOMI. ENT: Nares clear, no rhinorrhea or epistaxis. Mucous membranes moist. Tenderness bilateral maxillary sinuses NECK: Supple. CHEST: Clear to auscultation. No respiratory distress. HEART: Regular rate and rhythm. No murmur heard. Normal peripheral pulses. ABDOMEN: Soft, nontender, nondistended, normal active bowel sounds. EXTREMITIES: Minimal tenderness to the lateral malleolus of the right ankle with no overlying skin changes or deformity, full active and passive range of motion of ankle, DP pulse 2 +, sensation intact. No effusion, warmth or erythema. Negative Homans sign. No lower extremity edema bilaterally SKIN: Warm, dry, no rash. NEURO: No focal deficits. Alert and oriented x3 <Ina Gutierrez PA-C - Last Filed: 11/04/24 17:25> Course Vital Signs Vital signs: Vital Signs Temperature 97.6 F 11/04/24 12:50 Pulse Rate 111 H 11/04/24 12:50 Respiratory Rate 18 11/04/24 12:50 Blood Pressure 221/101 H 11/04/24 12:50 Pulse Oximetry 99 11/04/24 12:50 Temperature 98.2 F 11/04/24 14:43 Pulse Rate 93 11/04/24 14:43 Respiratory Rate 14 11/04/24 14:43 Blood Pressure 215/113 H 11/04/24 14:43 Pulse Oximetry 100 11/04/24 14:43 <Monica Haskins, HE[employer]ACHINE - Last Filed: 11/04/24 16:34> Vital Signs Temperature 97.6 F 11/04/24 12:50 Pulse Rate 111 H 11/04/24 12:50 Respiratory Rate 18 11/04/24 12:50 Blood Pressure 221/101 H 11/04/24 12:50 Pulse Oximetry 99 11/04/24 12:50 Temperature 98.2 F 11/04/24 14:43 Pulse Rate 93 11/04/24 14:43 Respiratory Rate 14 11/04/24 14:43 Blood Pressure 215/113 H 11/04/24 14:43 Pulse Oximetry 100 11/04/24 14:43 <Ina Gutierrez PA-C - Last Filed: 11/04/24 17:25> Medical Decision Making MDM Narrative Medical decision making narrative: 59-year-old male with history of hypertension and fibromyalgia presents to emergency department for sinus congestion and pressure for 8 months and atraumatic right ankle pain for the past 2 days. See HPI for further history. Triage vitals remarkable for hypertension of 221/101 and tachycardia 111. Tachycardia since resolved. Patient is afebrile nontoxic appearing resting comfortably in exam bed. On exam, patient does have tenderness to bilateral maxillary sinuses. His lung sounds are clear. He has mild tenderness to the right lateral malleolus with no edema, erythema, deformity. He is neurovascularly intact. He has negative Homans signs and no risk factors for DVT. Lab work obtained in triage shows no leukocytosis or anemia CBC. Chemistries are unremarkable without evidence of hepatic or renal injury due to untreated hypertension. Chest x-ray shows no acute cardiopulmonary abnormalities. X-ray of the ankle is unremarkable. EKG shows normal sinus rhythm with normal VT interval, normal QRS duration, normal QTC and no ischemic changes. Patient updated on results. He admits to running out of his antihypertensive several months ago and has not followed up with his PCP. He does provide the empty pill bottles today which consist of hydrochlorothiazide 12.5 mg and amlodipine 10 mg. He has no signs or symptoms of hypertensive emergency. I will refill his medications and he was given doses of them here today. I will also provide naproxen for his right ankle pain and start him on Augmentin and flonase for sinusitis. I advised him to follow-up closely with his PCP and discussed return precautions. He is agreeable with the plan verbalized understanding. Discharged in stable condition. <Ina Gutierrez PA-C - Last Filed: 11/04/24 17:25> Vital Signs Vital Signs: Vital Signs Temperature 97.6 F 11/04/24 12:50 Pulse Rate 111 H 11/04/24 12:50 Respiratory Rate 18 11/04/24 12:50 Blood Pressure 221/101 H 11/04/24 12:50 Pulse Oximetry 99 11/04/24 12:50 Temperature 98.2 F 11/04/24 14:43 Pulse Rate 93 11/04/24 14:43 Respiratory Rate 14 11/04/24 14:43 Blood Pressure 215/113 H 11/04/24 14:43 Pulse Oximetry 100 11/04/24 14:43 <Monica Haskins, HEEL BU[employer]ACHINE - Last Filed: 11/04/24 16:34> Vital Signs Temperature 97.6 F 11/04/24 12:50 Pulse Rate 111 H 11/04/24 12:50 Respiratory Rate 18 11/04/24 12:50 Blood Pressure 221/101 H 11/04/24 12:50 Pulse Oximetry 99 11/04/24 12:50 Temperature 98.2 F 11/04/24 14:43 Pulse Rate 93 11/04/24 14:43 Respiratory Rate 14 11/04/24 14:43 Blood Pressure 215/113 H 11/04/24 14:43 Pulse Oximetry 100 11/04/24 14:43 <Ina Gutierrez PA-C - Last Filed: 11/04/24 17:25> Lab Data Result diagrams: 11/04/24 15:41 11/04/24 15:41 <Monica Haskins [employer]ACHINE - Last Filed: 11/04/24 16:34> Labs: Lab Results 11/04/24 Range/Units 15:41 WBC 8.9 (4.5-10.0) K/mm3 RBC 4.81 (4.6-6.20) M/mm3 Hgb 14.2 (14.0-18.0) g/dL Hct 41.6 L (42.0-52.0) % MCV 86.5 (80-100) fl MCH 29.5 (26-34) pg MCHC 34.1 (32-36) g/dl RDW 11.9 (11.5-14.5) % Plt Count 324 (150-375) k/mm3 MPV 8.5 (7.4-10.4) fl Immature Gran % (Auto) 0.3 (0-0.5) % Neut % (Auto) 67.5 (45.5-73.1) % Lymph % (Auto) 24.5 (18.3-44.2) % [place] % (Auto) 6.3 (2.6-8.5) % Eos % (Auto) 1.3 (0-4.4) % Baso % (Auto) 0.1 L (0.2-1.2) % Lymph # (Auto) 2.18 (0.9-3.2) K/mm3 [place] # (Auto) 0.6 (0.1-0.6) K/mm3 Eos # (Auto) 0.1 (0-0.3) K/mm3 Baso # (Auto) 0.0 (0.0-0.1) K/mm3 Abs Immat Gran (auto) 0.03 (0.00-0.031) K/mm3 Absolute Neuts (auto) 6.0 (1.3-6.7) K/mm3 Absolute Nucleated RBC 0.000 (0.0-0.012) K/mm3 Nucleated RBC % 0.0 (0.0-0.2) % Sodium 139 (137-145) mmol/L Potassium 3.9 (3.4-5.0) mmol/L Chloride 105 (98-107) mmol/L Carbon Dioxide 23 (22-30) mmol/L Anion Gap 11 (4-12) mmol/L BUN 12 D (9-20) mg/dL Creatinine 0.97 (0.7-1.3) mg/dL Estim Creat Clear Calc 68 ml/min Estimated GFR > 60 (59 - ) Glucose 92 (65-110) mg/dL Calcium 9.6 (8.4-10.2) mg/dL Total Bilirubin 0.5 (0.2-1.3) mg/dL AST 23 (17-59) U/L ALT 25 (6-50) U/L Alkaline Phosphatase 106 (38-126) U/L Total Protein 9.0 H (6.3-8.2) g/dL Albumin 4.2 (3.5-5.1) g/dL <Monica Haskins, HEEL BUILDER [employer]ACHINE - Last Filed: 11/04/24 16:34> Lab Results 11/04/24 Range/Units 15:41 WBC 8.9 (4.5-10.0) K/mm3 RBC 4.81 (4.6-6.20) M/mm3 Hgb 14.2 (14.0-18.0) g/dL Hct 41.6 L (42.0-52.0) % MCV 86.5 (80-100) fl MCH 29.5 (26-34) pg MCHC 34.1 (32-36) g/dl RDW 11.9 (11.5-14.5) % Plt Count 324 (150-375) k/mm3 MPV 8.5 (7.4-10.4) fl Immature Gran % (Auto) 0.3 (0-0.5) % Neut % (Auto) 67.5 (45.5-73.1) % Lymph % (Auto) 24.5 (18.3-44.2) % [place] % (Auto) 6.3 (2.6-8.5) % Eos % (Auto) 1.3 (0-4.4) % Baso % (Auto) 0.1 L (0.2-1.2) % Lymph # (Auto) 2.18 (0.9-3.2) K/mm3 [place] # (Auto) 0.6 (0.1-0.6) K/mm3 Eos # (Auto) 0.1 (0-0.3) K/mm3 Baso # (Auto) 0.0 (0.0-0.1) K/mm3 Abs Immat Gran (auto) 0.03 (0.00-0.031) K/mm3 Absolute Neuts (auto) 6.0 (1.3-6.7) K/mm3 Absolute Nucleated RBC 0.000 (0.0-0.012) K/mm3 Nucleated RBC % 0.0 (0.0-0.2) % Sodium 139 (137-145) mmol/L Potassium 3.9 (3.4-5.0) mmol/L Chloride 105 (98-107) mmol/L Carbon Dioxide 23 (22-30) mmol/L Anion Gap 11 (4-12) mmol/L BUN 12 D (9-20) mg/dL Creatinine 0.97 (0.7-1.3) mg/dL Estim Creat Clear Calc 68 ml/min Estimated GFR > 60 (59 - ) Glucose 92 (65-110) mg/dL Calcium 9.6 (8.4-10.2) mg/dL Total Bilirubin 0.5 (0.2-1.3) mg/dL AST 23 (17-59) U/L ALT 25 (6-50) U/L Alkaline Phosphatase 106 (38-126) U/L Total Protein 9.0 H (6.3-8.2) g/dL Albumin 4.2 (3.5-5.1) g/dL <Ina Gutierrez PA-C - Last Filed: 11/04/24 17:25> Discharge Plan Discharge Clinical Impression: Ankle pain, right, Sinusitis, Asymptomatic hypertension <Monica Haskins APRN - Last Filed: 11/04/24 16:34> Patient Disposition: Home, Self-Care <Monica Haskins APRN - Last Filed: 11/04/24 16:34> Condition: Stable <Monica Haskins APRN - Last Filed: 11/04/24 16:34> Instructions: Antibiotic Form, Sinusitis (ED), Hypertension (ED), Arthralgia (ED) <Monica Haskins APRN - Last Filed: 11/04/24 16:34> Additional Instructions: You were evaluated in the emergency department for sinus congestion and pressure for 8-9 months and right ankle pain for the past 2 days. Your workup here is reassuring. X-ray of her ankle shows no abnormalities. You were found to have very high blood pressure . I refilled your blood pressure medications, please take it as directed. Please take naproxen as needed for ankle pain. Take antibiotics and nasal spray as directed for your sinus congestion and pressure. Follow-up with your primary care provider. Return to the emergency department if you develop chest pain, shortness of breath, swelling to her legs or other concerning symptoms. <Monica Haskins APRN - Last Filed: 11/04/24 16:34> Patient Language: Frisian <Monica Haskins APRN - Last Filed: 11/04/24 16:34> Prescriptions: New amoxicillin-pot clavulanate 875-125 mg tablet 1 tablet PO Q12H Qty: 14 0RF fluticasone propionate [Flonase Allergy Relief] 50 mcg/actuation spray,suspension 1 spray intranasal Q12H Qty: 16 0RF Rx Instructions: administer into each nostril naproxen 500 mg tablet 500 mg PO BID PRN (Reason: pain) Qty: 20 0RF amlodipine [Norvasc] 10 mg tablet 10 mg PO DAILY Qty: 30 0RF hydrochlorothiazide 12.5 mg capsule 12.5 mg PO DAILY Qty: 30 0RF No Action fluticasone propionate [Flonase Allergy Relief] 50 mcg/actuation spray,suspension 1 spray NASAL BID Qty: 15.8 3RF Rx Instructions: administer into each nostril metoprolol succinate 12.5 mg PO DAILY hydrochlorothiazide 12.5 mg PO DAILY Augmentin 875 mg PO BID Patient Comments: started 01/22/2020 and ends 01/30/2020 Rx Instructions: take twice a day x 7 days started 01/22/2020 and ends 01/30/2020 naproxen 500 mg tablet 500 mg PO BID PRN (Reason: pain) Qty: 20 0RF cyclobenzaprine 10 mg tablet 10 mg PO TID PRN (Reason: muscle spasm) Qty: 14 0RF naproxen [Naprosyn] 500 mg tablet 500 mg PO BID PRN (Reason: pain) Qty: 20 0RF cyclobenzaprine 10 mg tablet 10 mg PO TID PRN (Reason: muscle spasm) Qty: 20 0RF orphenadrine citrate 100 mg tablet extended release 100 mg PO Q12H PRN (Reason: spasms) Qty: 30 0RF diclofenac potassium 50 mg tablet 50 mg PO TID PRN (Reason: pain) Qty: 30 0RF sulfamethoxazole-trimethoprim [Bactrim DS] 800-160 mg tablet 1 tablet PO Q12H 7 Days Qty: 14 0RF omeprazole 20 mg capsule,delayed release(DR/EC) 20 mg PO DAILY Qty: 90 0RF <Monica Haskins APRN - Last Filed: 11/04/24 16:34> Follow-up/Referrals: Meir Rivera MD [Primary Care Provider] - <Monica Haskins APRN - Last Filed: 11/04/24 16:34>
[2024-11-04 15:56] LABS: Basophils Percent Auto 0.1 % (0.2-1.2); Eosinophils Absolute Auto 0.1 K/mm3 (0-0.3); Eosinophils Percent Auto 1.3 % (0-4.4); Hematocrit 41.6 % (42.0-52.0); Hemoglobin 14.2 g/dL (14.0-18.0); Immature Granulocyte Absolute 0.03 K/mm3 (0.00-0.031); Immature Granulocyte Percent A 0.3 % (0-0.5); Lymphocytes Absolute Auto 2.18 K/mm3 (0.9-3.2); Lymphocytes Percent Auto 24.5 % (18.3-44.2); Mean Corpuscular HGB Conc 34.1 g/dl (32-36); Mean Corpuscular Hemoglobin 29.5 pg (26-34); Mean Corpuscular Volume 86.5 fl (80-100); Mean Platelet Volume 8.5 fl (7.4-10.4); Monocytes Absolute Auto 0.6 K/mm3 (0.1-0.6); Monocytes Percent Auto 6.3 % (2.6-8.5); Neutrophils Percent Auto 67.5 % (45.5-73.1); Platelet Count Result 324 k/mm3 (150-375); Red Blood Count 4.81 M/mm3 (4.6-6.20); Red Cell Distribution Width 11.9 % (11.5-14.5); White Blood Count 8.9 K/mm3 (4.5-10.0)
[2024-11-04 16:11] LABS: Alanine Aminotransferase 25 U/L (6-50); Albumin Level 4.2 g/dL (3.5-5.1); Alkaline Phosphatase 106 U/L (38-126); Anion Gap 11 mmol/L (4-12); Aspartate Amino Transferase 23 U/L (17-59); Bilirubin,Total 0.5 mg/dL (0.2-1.3); Blood Urea Nitrogen 12 mg/dL (9-20); Calcium 9.6 mg/dL (8.4-10.2); Carbon Dioxide 23 mmol/L (22-30); Chloride 105 mmol/L (98-107); Estimated CRCL calculation 68 ml/min; Estimated Glomerular Filt Rate > 60; Glucose 92 mg/dL (65-110); Potassium 3.9 mmol/L (3.4-5.0); Sodium 139 mmol/L (137-145)
[2024-11-04 17:23] VITALS: BP 196/109; PULSE 88; RESP 14; TEMP 36.6; O2SAT 99
[2024-11-04 17:25] VITALS: PULSE 99; RESP 17; O2SAT 99
[2024-11-04] MEDS: AMOXICILLIN/CLAVULANATE K 875-125 MG TAB 1 TABLET PO (17:28)
[2024-11-04] MEDS: NAPROXEN 500 MG TABLET PO (17:28)
[2024-11-04] MEDS: amLODIPine BESYLATE 10 MG TABLET PO (17:49)
[2024-11-04] MEDS: hydroCHLOROthiazide 12.5 MG CAPSULE PO (17:49)
[2024-11-04 18:07] VITALS: BP 172/110; PULSE 62; RESP 18; O2SAT 97
== END 2024-11-04 18:09 | disposition home or self-care (01) ==
LOC: ANHED 17:24
PROVIDERS: Registered Nurse; Emergency Provider Physician Assistant; PCP Emergency Medicine
DX: M25.571 Pain in right ankle and joints of right foot (principal); J01.90 Acute sinusitis, unspecified; I10 Essential (primary) hypertension
CPT/HCPCS: 36415; 71046; 73610; 80053; 85025; 93005; 99284; A9270